=== PATIENT | male | born 1950 | race Caucasian/White ===

== ENCOUNTER 2016-10-28 13:07 | Observation (INO) | payer MEDICARE, BC ==
[~2016-10-28] VITALS: Ht 170.2 cm; Wt 78.7 kg
[2016-10-28 14:36] LABS: HEMOGLOBIN 14.4 gm/dl (14.0-17.5); RED BLOOD COUNT 4.55 M/UL (4.20-5.50); WHITE BLOOD COUNT 9.5 K/UL (4.5-11.0)
[2016-10-28 15:02] LABS: BUN/CREATININE RATIO 16 (0-10)
[2016-10-28] MEDS ORDERED: K-DUR TAB 20 M20 MEQ PO (20:24)
[2016-10-28] MEDS ORDERED: LIVALO2 MG PO (20:24)
[2016-10-28] MEDS ORDERED: CATAPRES 0.1MG0.1 MG PO (20:25)
[2016-10-28] MEDS ORDERED: TRANDOLAPRIL4 MG PO (20:26)
[2016-10-28] MEDS ORDERED: DILTIAZEM 24HR180 M1 PO (20:26)
[2016-10-28] MEDS ORDERED: ZETIA 10 MG TAB10 MG PO (20:26)
[2016-10-28] MEDS ORDERED: ASPIR 8181 MG PO (20:27)
[2016-10-29 06:18] LABS: HEMOGLOBIN 13.6 gm/dl (14.0-17.5); RED BLOOD COUNT 4.33 M/UL (4.20-5.50)
[2016-10-29 06:32] LABS: BUN/CREATININE RATIO 16 (0-10)
[2016-10-29 06:33] LABS: WHITE BLOOD COUNT 6.9 K/UL (4.5-11.0)
[2016-10-30] MEDS ORDERED: ANTIVERT 25MG T25 MG PO (14:03)
[2016-10-30] MEDS ORDERED: ZOFRAN4 MG PO (14:04)
== END 2016-10-30 16:27 | disposition home or self-care (01) ==
LOC: ER1 13:07 → M/S 16:40
PROVIDERS: Preventive Medicine Occupational Medicine; ADMIT Internal Medicine
DX: H81.10 Benign paroxysmal vertigo, unspecified ear (principal); H70.12 Chronic mastoiditis, left ear; K52.9 Noninfective gastroenteritis and colitis, unspecified; R42 Dizziness and giddiness; E78.5 Hyperlipidemia, unspecified; I10 Essential (primary) hypertension; I25.2 Old myocardial infarction; Z79.82 Long term (current) use of aspirin; Z79.899 Other long term (current) drug therapy
CPT/HCPCS: ECHO; 36415; 70450; 70486; 70551; 80048; 80053; 81001; 82550; 82553; 83874; 84484; 85025; 86140; 93005; 93306; 93880; 96374; 96376; 99285; G0378; J2405; J2550; J7030